=== PATIENT | male | born 1950 | race American Indian/Alaskan Native ===

== ENCOUNTER 2017-03-09 09:25 | Emergency (ER) | payer SELFPAY ==
--- NOTE | 2017-03-09 10:17 | XRay Report ---
Bilateral knee: History: Pain. Findings: Minimal narrowing of the medial compartment of the right and left knee joint. Patellofemoral compartment and the lateral compartment appears unremarkable. There is spur identified at the anterosuperior aspect of the right patella. Impression: Mild degenerative changes medial compartment right and left knee joint.
[2017-03-09 10:57] VITALS: BP 140/86
[2017-03-09] MEDS ORDERED: ULTRAM PO ONE (11:26)
--- NOTE | 2017-03-09 11:49 | Emergency Department Report ---
Entered by ANGEL CHOI, acting as scribe for EMY RIGGINS NP. ED Fall HPI - General Chief Complaint: Extremity Injury, Lower Stated Complaint: LEFT KNEE PAIN Time Seen by Provider: 03/09/17 11:17 Source: patient Mode of arrival: Ambulatory - History of Present Illness Initial Comments: 66 y/o male presents to the ED c/o left knee pain status post fall this morning. Denies back pain, neck pain, headache, numbness, SOB, fever, chills, nausea and vomiting. Pain is described as 6/10 on a severity scale. Patient states he was walking in the store when he slipped and fell on wet floor landing on left knee. No alleviating or aggravating factors. NKDA. MANUEL Complaint: fall -: This morning Fall From: standing When Fall Occurred: unsure Fall Witnessed: yes, by bystander Place Fall Occurred: other (store) Loss of Consciousness: none Prolonged Down Time?: no Symptoms Prior to Fall: none Location - Extremities: Left: Knee Severity: moderate Severity scale (0 -10): 6 Context: tripped/slipped Associated Symptoms: denies: headache, neck pain, numbness, shortness of breath , other (back pain, fever, chills, nausea, vomiting) - Related Data Previous Rx's Medication Instructions Recorded Last Taken Type Acetaminophen [Acetaminophen TAB] 1,000 mg PO Q6HR PRN #60 tablet 03/09/17 Unknown Rx Cyclobenzaprine [Flexeril] 10 mg PO TID PRN #30 tablet 03/09/17 Unknown Rx Allergies Allergy/AdvReac Type Severity Reaction Status Date / Time No Known Allergies Allergy Unverified 03/09/17 09:38 ED Review of Systems Comment: All other systems reviewed and negative Constitutional: denies: chills, fever Respiratory: denies: shortness of breath Gastrointestinal: denies: nausea, vomiting Musculoskeletal: other (left knee pain, denies: neck pain). denies: back pain Neurological: denies: headache, numbness ED Past Medical Hx - Past Medical History Hx Diabetes: Yes - Surgical History Past Surgical History?: No - Social History Smoking Status: Unknown if ever smoked Substance Use Type: None - Medications Home Medications: Home Medications Medication Instructions Recorded Confirmed Last Taken Type Acetaminophen [Acetaminophen TAB] 1,000 mg PO Q6HR PRN #60 tablet 03/09/17 Unknown Rx Cyclobenzaprine [Flexeril] 10 mg PO TID PRN #30 tablet 03/09/17 Unknown Rx ED Physical Exam - General Limitations: No Limitations General appearance: alert, in no apparent distress - Head Head exam: Present: atraumatic, normocephalic, normal inspection - Eye Eye exam: Present: normal appearance, PERRL, EOMI. Absent: scleral icterus, conjunctival injection, nystagmus, periorbital swelling, periorbital tenderness Pupils: Present: normal accommodation - ENT ENT exam: Present: normal exam, normal orophraynx, mucous membranes moist, TM's normal bilaterally, normal external ear exam - Neck Neck exam: Present: normal inspection, full ROM. Absent: tenderness, meningismus, lymphadenopathy, thyromegaly - Respiratory Respiratory exam: Present: normal lung sounds bilaterally. Absent: respiratory distress, wheezes, rales, rhonchi, stridor, chest wall tenderness, accessory muscle use, decreased breath sounds, prolonged expiratory - Cardiovascular Cardiovascular Exam: Present: regular rate, normal rhythm, normal heart sounds. Absent: bradycardia, tachycardia, irregular rhythm, systolic murmur, diastolic murmur, rubs, gallop - GI/Abdominal GI/Abdominal exam: Present: soft, normal bowel sounds. Absent: distended, tenderness, guarding, rebound, rigid, diminished bowel sounds - Rectal Rectal exam: Present: deferred - Extremities Exam Extremities exam: Present: normal inspection, full ROM, normal capillary refill. Absent: tenderness, pedal edema, joint swelling, calf tenderness - Expanded Lower Extremity Exam Left Hip exam: Present: normal inspection, full ROM Upper Leg exam: Present: normal inspection, full ROM Knee exam: Present: normal inspection, full ROM, pain w/ pronation/supination ( pain with medial rotation left pt remains ambulatory , no drawer no ecchymosis no deformity ), full knee extension. Absent: tenderness, swelling, abrasion, laceration, ecchymosis, deformity, crepidus, dislocation, erythema, effusion, posterior draw sign, pain/laxity with valgus, pain/laxity with varus Lower Leg exam: Present: normal inspection, full ROM Ankle exam: Present: normal inspection, full ROM Foot/Toe exam: Present: normal inspection, full ROM Neuro vascular tendon exam: Present: no vascular compromise Gait: Positive: observed and normal - Back Exam Back exam: Present: normal inspection, full ROM. Absent: tenderness, CVA tenderness (R), CVA tenderness (L), muscle spasm, paraspinal tenderness, vertebral tenderness, rash noted - Neurological Exam Neurological exam: Present: alert, oriented X3, normal gait, reflexes normal - Psychiatric Psychiatric exam: Present: normal affect, normal mood - Skin Skin exam: Present: warm, dry, intact, normal color. Absent: rash ED Course Vital Signs 03/09/17 03/09/17 09:31 10:53 Temperature 98.7 F 98.0 F Pulse Rate 78 78 Respiratory 18 18 Rate Blood Pressure 153/91 Blood Pressure 140/86 [Left] O2 Sat by Pulse 100 98 Oximetry ED Medical Decision Making - Medical Decision Making pt is a 66 y/o aam s/p fall in store who presents for left knee pain s/p fall pt remains ambulatory to baseline per patient, exam there is no deformity no swelling no ecchymosis no erythema no catch no click no pop, no drawer, no effusion no patellar tendon tenderness xrays suggestiive or arthritis no acute fracture or soft tissue injury, pain is improved with ultram given in ed plan: tylenol , flexeril, rice therapy and knee exercises pt will follow up with pcp Dr. Gregorio if symptoms not improving. pt verbalized agreement and understanding of discharge plan. ED Disposition Clinical Impression: Strain of knee and leg, left Qualifiers: Encounter type: initial encounter Qualified Code(s): S86.912A - Strain of unspecified muscle(s) and tendon(s) at lower leg level, left leg, initial encounter Disposition: TO HOME OR SELFCARE Is pt being admited?: No Does the pt Need Aspirin: No Condition: Good Instructions: Knee Pain (ED), Fall Prevention (ED), Knee Exercises (GEN) Prescriptions: Acetaminophen [Acetaminophen TAB] 1,000 mg PO Q6HR PRN #60 tablet PRN Reason: Pain Cyclobenzaprine [Flexeril] 10 mg PO TID PRN #30 tablet PRN Reason: Muscle Spasm Referrals: AILEEN ROSE [Other] - 3-5 Days Forms: Work/School Release Form(ED) Time of Disposition: 11:49 This documentation as recorded by the STEPH rodrigez ELIZABETH,accurately reflects the service I personally performed and the decisions made by me, EMY RIGGINS NP.
== END 2017-03-09 11:59 | disposition home or self-care (01) ==
LOC: ED 09:25
DX: S76.912A Strain of unspecified muscles, fascia and tendons at thigh level, left thigh, initial encounter (principal); E11.65 Type 2 diabetes mellitus with hyperglycemia; W01.0XXA Fall on same level from slipping, tripping and stumbling without subsequent striking against object, initial encounter; Y93.89 Activity, other specified; Y92.89 Other specified places as the place of occurrence of the external cause; Y99.8 Other external cause status
CPT/HCPCS: 99283